=== PATIENT | male | born 2005 | race Two or more races ===

== ENCOUNTER 2024-02-04 15:03 | Emergency (ER) | payer BC ==
[~2024-02-04] VITALS: Ht 198.1 cm; Wt 104.3 kg
[2024-02-04 17:22] VITALS: BP 141/80; TEMP 98.2; O2SAT 100
== END 2024-02-04 17:22 | disposition home or self-care (01) ==
LOC: ER 15:21
DX: S80.11XA Contusion of right lower leg, initial encounter (principal); Z88.8 Allergy status to other drugs, medicaments and biological substances; V29.99XA Rider (driver) (passenger) of other motorcycle injured in unspecified traffic accident, initial encounter; Y93.89 Activity, other specified; Y92.89 Other specified places as the place of occurrence of the external cause; Y99.8 Other external cause status
CPT/HCPCS: 73564-TC; 73590-TC